=== PATIENT | female | born 1995 | race Caucasian/White ===

== ENCOUNTER 2018-11-28 16:48 | Observation (INO) | payer OTHER ==
[~2018-11-28] VITALS: Ht 165.1 cm; Wt 54.4 kg
[~2018-11-28 16:48] MED LIST: FLUO10 PO; GABA300 PO; HYDHCL25 PO; IBUP600 PO; MULVITMIND PO; NEXPLANON68 MG SQ; Oxycodone HCl5 M1 PO; RISP.5 PO; SENN187 PO; Tylenol325 MG PO; Vibramycin100 MG PO; ZINC15 PO
[2018-11-28 18:15] LABS: Source, Urine Clean Catch
[2018-11-28 18:19] LABS: BASOPHILS ABSOLUTE AUTO 0.08 K/mm3 (0.00-0.23); BASOPHILS PERCENT AUTO 1 % (0-2); EOSINOPHILS ABSOLUTE AUTO 0.01 K/mm3 (0.00-0.68); EOSINOPHILS PERCENT AUTO 0 % (0-6); Hemoglobin 12.6 g/dL (11.5-16.0); IMMATURE GRAN ABSOLUTE AUTO 0.02 K/mm3 (0.00-0.10); IMMATURE GRAN PERCENT AUTO 0 % (0-1); LYMPHOCYTES ABSOLUTE AUTO 1.15 K/mm3 (0.84-5.20); LYMPHOCYTES PERCENT AUTO 15 % (21-46); MONOCYTES ABSOLUTE AUTO 0.83 K/mm3 (0.16-1.47); MONOCYTES PERCENT AUTO 11 % (4-13); Mean Corpuscular HGB 29.2 pg (26.0-34.0); Mean Corpuscular HGB Conc 33.2 g/dL (31.5-36.5); Mean Corpuscular Volume 88 fL (80-100); Mean Platelet Volume 9.4 fL (9.1-12.4); NEUTROPHILS ABSOLUTE AUTO 5.68 K/mm3 (1.96-9.15); NEUTROPHILS PERCENT AUTO 73 % (41-73); Platelet Count 275 K/mm3 (150-400); RDW Coefficient Variation 13.4 % (11.7-14.2); RDW Standard Deviation 43.9 fL (35.1-46.3); Red Blood Cell Count 4.31 M/mm3 (3.80-5.20); White Blood Cell Count 7.77 K/mm3 (4.00-11.30)
[2018-11-28 18:22] LABS: Bilirubin, Urine Neg (Neg); Blood, Urine 3+ (Neg); Glucose Qualitative, Urine Neg (Neg); Ketones, Urine 2+ (Neg); Leukocyte Esterase, Urine Neg (Neg); Nitrite, Urine Neg (Neg); Protein, Urine 1+ (Neg); Specific Gravity, Urine 1.025 (1.003-1.022); Urobilinogen, Urine NORM (Normal)
[2018-11-28 18:42] LABS: Appearance, Urine Clear (Clear); Color, Urine Yellow (P-Yellow)
[2018-11-28 18:43] LABS: Mucus Light (0-Heavy)
[2018-11-28 18:44] LABS: Bacteria Few /hpf; Squamous Epithelial Cells Few /hpf (Few)
[2018-11-28 18:51] LABS: Ethanol (Alcohol), Blood, Med <3 mg/dL; Salicylate 2.5 mg/dL (2.8-20.0)
[2018-11-28 18:51] LABS: U Amphetamine Screen Not Detected; U Barbituate Screen Not Detected; U Benzodiazapine Screen Not Detected; U Buprenorphine Screen Not Detected; U Cannabinoids Screen DETECTED; U Cocaine Screen Not Detected; U Methadone Screen Not Detected; U Methamphetamine Screen Not Detected; U Opiates Screen Not Detected; U Oxycodone Screen Not Detected; U Phencyclidine Screen Not Detected; U Propoxyphene Screen Not Detected
[2018-11-28 18:57] LABS: Alanine Aminotransfer (ALT/SGP 17 U/L (12-78); Albumin, Blood 4.3 g/dL (3.4-5.0); Albumin/Globulin Ratio 1.2 (0.8-1.8); Alk Phos 65 U/L (50-136); Anion Gap 8 mmol/L (6-16); Aspartate Aminotrans (AST/SGOT 13 U/L (12-37); Bilirubin, Total 0.6 mg/dL (0.1-1.0); Blood Urea Nitrogen 13 mg/dL (8-24); CO2, Blood 25 mmol/L (21-32); Calcium, Blood 8.7 mg/dL (8.5-10.1); Chloride, Blood 105 mmol/L (98-108); Creatinine, Blood 0.65 mg/dL (0.40-1.00); Globulin, Blood 3.7 g/dL (2.2-4.0); Glomerular Filtration Rate >60 (60-); Glucose, Blood 113 mg/dL (70-99); Potassium, Blood 3.6 mmol/L (3.5-5.5); Sodium, Blood 138 mmol/L (136-145)
[2018-11-28 19:04] LABS: Acetaminophen, Random <2.0 ug/mL (10.0-30.0)
[2018-12-02] MEDS ORDERED: LORA1 SL (10:54)
[2018-12-02] MEDS ORDERED: OLAN10 PO (10:54)
[2018-12-02] MEDS ORDERED: VENL75ER PO (10:54)
== END 2018-12-02 12:21 | disposition home or self-care (01) ==
LOC: ER 16:48 → EOR 16:49
PROVIDERS: ADMIT Emergency Medicine
DX: F23 Brief psychotic disorder (principal); F41.9 Anxiety disorder, unspecified; F32.9 Major depressive disorder, single episode, unspecified; G43.909 Migraine, unspecified, not intractable, without status migrainosus; Z79.899 Other long term (current) drug therapy
CPT/HCPCS: 80053; 81001; 81025; 84443; 85025; 96372; 99285-25; G0378; G0480

== ENCOUNTER 2018-12-09 11:58 | Emergency (ER) | payer OTHER ==
[~2018-12-09] VITALS: Ht 162.6 cm; Wt 54.4 kg
[~2018-12-09 11:58] MED LIST changes: +LORA1 SL; +OLAN10 PO; +VENL75ER PO
[2018-12-09] MEDS ORDERED: Ativan1 MG PO ×2 (12:23→12:32)
[2018-12-09] MEDS ORDERED: OLAN5 PO (12:23)
== END 2018-12-09 12:28 | disposition home or self-care (01) ==
LOC: ER 11:58
DX: Z76.0 Encounter for issue of repeat prescription (principal); Z79.899 Other long term (current) drug therapy; G43.909 Migraine, unspecified, not intractable, without status migrainosus
CPT/HCPCS: 99281

== ENCOUNTER 2020-04-19 10:55 | Emergency (ER) | payer OTHER ==
[~2020-04-19] VITALS: Ht 162.6 cm; Wt 54.4 kg
[~2020-04-19 10:55] MED LIST changes: +Ativan1 MG PO; +OLAN5 PO
[2020-04-19] MEDS ORDERED: RISP2 PO (11:35)
[2020-04-19] MEDS ORDERED: Klonopin1 MG PO (11:35)
[2020-04-19 12:08] LABS: BASOPHILS ABSOLUTE AUTO 0.09 K/mm3 (0.00-0.23); BASOPHILS PERCENT AUTO 1 % (0-2); EOSINOPHILS ABSOLUTE AUTO 0.11 K/mm3 (0.00-0.68); EOSINOPHILS PERCENT AUTO 1 % (0-6); Hematocrit 38.7 % (33.0-51.0); Hemoglobin 12.2 g/dL (11.5-16.0); IMMATURE GRAN ABSOLUTE AUTO 0.06 K/mm3 (0.00-0.10); IMMATURE GRAN PERCENT AUTO 0 % (0-1); LYMPHOCYTES ABSOLUTE AUTO 1.58 K/mm3 (0.84-5.20); LYMPHOCYTES PERCENT AUTO 10 % (21-46); MONOCYTES ABSOLUTE AUTO 0.81 K/mm3 (0.16-1.47); MONOCYTES PERCENT AUTO 5 % (4-13); Mean Corpuscular HGB 29.6 pg (26.0-34.0); Mean Corpuscular HGB Conc 31.5 g/dL (31.5-36.5); Mean Corpuscular Volume 94 fL (80-100); Mean Platelet Volume 9.2 fL (9.1-12.4); NEUTROPHILS ABSOLUTE AUTO 13.24 K/mm3 (1.96-9.15); NEUTROPHILS PERCENT AUTO 83 % (41-73); Platelet Count 378 K/mm3 (150-400); RDW Coefficient Variation 13.1 % (11.7-14.2); RDW Standard Deviation 45.2 fL (35.1-46.3); Red Blood Cell Count 4.12 M/mm3 (3.80-5.20); White Blood Cell Count 15.89 K/mm3 (4.00-11.30)
[2020-04-19 12:24] LABS: International Normalized Ratio 1.15; Prothrombin Time Results 12.2 Sec (9.7-11.5)
[2020-04-19 12:27] LABS: Alanine Aminotransfer (ALT/SGP 17 U/L (12-78); Albumin/Globulin Ratio 1.1 (0.8-1.8); Alk Phos 57 U/L (50-136); Anion Gap 5 mmol/L (6-16); Aspartate Aminotrans (AST/SGOT 10 U/L (12-37); Bilirubin, Total 0.4 mg/dL (0.1-1.0); Blood Urea Nitrogen 38 mg/dL (8-24); Bun/Creatinine Ratio 53.4 (12.0-20.0); CO2, Blood 26 mmol/L (21-32); Calcium, Blood 9.3 mg/dL (8.5-10.1); Chloride, Blood 107 mmol/L (98-108); Creatinine, Blood 0.71 mg/dL (0.40-1.00); Globulin, Blood 3.7 g/dL (2.2-4.0); Glomerular Filtration Rate >60 (60-); Glucose, Blood 112 mg/dL (70-99); Potassium, Blood 4.2 mmol/L (3.5-5.5); Sodium, Blood 138 mmol/L (136-145); Total Protein, Blood 7.7 g/dL (6.4-8.2)
[2020-04-19 12:59] LABS: Troponin I <0.015 ng/mL (0.000-0.040)
[2020-04-19 13:25] LABS: Source, Urine Clean Catch
[2020-04-19 13:28] LABS: Appearance, Urine Clear (Clear); Bilirubin, Urine Neg (Neg); Blood, Urine Neg (Neg); Color, Urine Yellow (P-Yellow); Glucose Qualitative, Urine Neg (Neg); Ketones, Urine 3+ (Neg); Leukocyte Esterase, Urine Neg (Neg); Nitrite, Urine Neg (Neg); Protein, Urine Neg (Neg); Specific Gravity, Urine 1.005 (1.003-1.022); Urobilinogen, Urine NORM (Normal); pH, Urine 6.5 (5.0-8.0)
[2020-04-19] MEDS ORDERED: Pepcid20 MG PO (14:56)
[2020-04-19] MEDS ORDERED: ONDA4ODT MM (14:56)
[2020-04-20] MEDS ORDERED: VENL150ER PO (00:03)
[2020-04-20] MEDS ORDERED: LITH300ER PO (00:04)
[2020-04-20] MEDS ORDERED: BUPR100 PO (00:05)
[2020-04-20] MEDS ORDERED: VENL75ER PO (00:05)
[2020-04-27] MEDS ORDERED: FERROUS GLUCON324 M2 PO (22:25)
== END 2020-04-19 15:47 | disposition home or self-care (01) ==
LOC: ER 10:55
PROVIDERS: Emergency Medicine; Physician Assistant
DX: E86.0 Dehydration (principal); R11.2 Nausea with vomiting, unspecified; R10.13 Epigastric pain; R06.00 Dyspnea, unspecified; Z79.899 Other long term (current) drug therapy; F32.9 Major depressive disorder, single episode, unspecified; F41.9 Anxiety disorder, unspecified; F17.210 Nicotine dependence, cigarettes, uncomplicated
CPT/HCPCS: 36415; 74022; 80053; 81003; 83690; 84484; 85025; 85379; 85610; 85730; 86850; 86900; 86901; 93005; 93010; 96361; 96374; 99284-25; J2405; J7120

== ENCOUNTER 2020-04-19 23:49 | Inpatient (IN) | payer OTHER ==
[~2020-04-19] VITALS: Ht 160 cm; Wt 51.0 kg
[~2020-04-19 23:49] MED LIST changes: +Klonopin1 MG PO; +ONDA4ODT MM; +Pepcid20 MG PO; +RISP2 PO
[2020-04-20] MEDS ORDERED: VENL150ER PO (00:03)
[2020-04-20] MEDS ORDERED: LITH300ER PO (00:04)
[2020-04-20] MEDS ORDERED: BUPR100 PO (00:05)
[2020-04-20] MEDS ORDERED: VENL75ER PO (00:05)
[2020-04-20 00:10] LABS: BASOPHILS ABSOLUTE AUTO 0.06 K/mm3 (0.00-0.23); BASOPHILS PERCENT AUTO 0 % (0-2); EOSINOPHILS ABSOLUTE AUTO 0.04 K/mm3 (0.00-0.68); EOSINOPHILS PERCENT AUTO 0 % (0-6); Hemoglobin 7.5 g/dL (11.5-16.0); IMMATURE GRAN ABSOLUTE AUTO 0.06 K/mm3 (0.00-0.10); IMMATURE GRAN PERCENT AUTO 0 % (0-1); LYMPHOCYTES ABSOLUTE AUTO 2.65 K/mm3 (0.84-5.20); LYMPHOCYTES PERCENT AUTO 19 % (21-46); MONOCYTES ABSOLUTE AUTO 1.13 K/mm3 (0.16-1.47); MONOCYTES PERCENT AUTO 8 % (4-13); Mean Corpuscular HGB 30.2 pg (26.0-34.0); Mean Corpuscular HGB Conc 31.3 g/dL (31.5-36.5); Mean Corpuscular Volume 97 fL (80-100); Mean Platelet Volume 9.6 fL (9.1-12.4); NEUTROPHILS ABSOLUTE AUTO 9.81 K/mm3 (1.96-9.15); NEUTROPHILS PERCENT AUTO 71 % (41-73); Platelet Count 269 K/mm3 (150-400); RDW Coefficient Variation 13.2 % (11.7-14.2); RDW Standard Deviation 46.5 fL (35.1-46.3); Red Blood Cell Count 2.48 M/mm3 (3.80-5.20); White Blood Cell Count 13.75 K/mm3 (4.00-11.30)
[2020-04-20 00:10] LABS: Calcium, Ionized (POC) 1.09 mmol/L (1.10-1.46); Chloride (POC) 109 mmol/L (98-108); Creatinine (POC) 0.5 mg/dL (0.6-1.0); Glucose (ISTAT POC) 162 mg/dL (70-99); Hemoglobin (POC) 7.1 g/dL (12.0-16.0); Potassium (POC) 4.4 mmol/L (3.5-5.5); Sodium (POC) 141 mmol/L (135-148); Total CO2 (POC) 20 mmol/L (21-32)
[2020-04-20 00:46] LABS: Alanine Aminotransfer (ALT/SGP 14 U/L (12-78); Albumin, Blood 2.8 g/dL (3.4-5.0); Albumin/Globulin Ratio 1.1 (0.8-1.8); Alk Phos 39 U/L (50-136); Anion Gap 7 mmol/L (6-16); Aspartate Aminotrans (AST/SGOT 8 U/L (12-37); Bilirubin, Total 0.2 mg/dL (0.1-1.0); Blood Urea Nitrogen 39 mg/dL (8-24); Bun/Creatinine Ratio 59.6 (12.0-20.0); CO2, Blood 21 mmol/L (21-32); Chloride, Blood 115 mmol/L (98-108); Creatinine, Blood 0.65 mg/dL (0.40-1.00); Globulin, Blood 2.6 g/dL (2.2-4.0); Glomerular Filtration Rate >60 (60-); Glucose, Blood 176 mg/dL (70-99); Potassium, Blood 4.4 mmol/L (3.5-5.5); Sodium, Blood 143 mmol/L (136-145)
[2020-04-20 01:01] LABS: Calcium, Blood 7.3 mg/dL (8.5-10.1); Total Protein, Blood 5.4 g/dL (6.4-8.2)
[2020-04-20 06:08] LABS: BASOPHILS ABSOLUTE AUTO 0.03 K/mm3 (0.00-0.23); BASOPHILS PERCENT AUTO 0 % (0-2); EOSINOPHILS PERCENT AUTO 0 % (0-6); Hematocrit 30.3 % (33.0-51.0); Hemoglobin 9.9 g/dL (11.5-16.0); IMMATURE GRAN ABSOLUTE AUTO 0.04 K/mm3 (0.00-0.10); IMMATURE GRAN PERCENT AUTO 0 % (0-1); LYMPHOCYTES ABSOLUTE AUTO 1.73 K/mm3 (0.84-5.20); LYMPHOCYTES PERCENT AUTO 15 % (21-46); MONOCYTES ABSOLUTE AUTO 0.86 K/mm3 (0.16-1.47); MONOCYTES PERCENT AUTO 8 % (4-13); Mean Corpuscular HGB 28.9 pg (26.0-34.0); Mean Corpuscular HGB Conc 32.7 g/dL (31.5-36.5); Mean Platelet Volume 9.6 fL (9.1-12.4); NEUTROPHILS PERCENT AUTO 76 % (41-73); Platelet Count 196 K/mm3 (150-400); RDW Coefficient Variation 14.3 % (11.7-14.2); RDW Standard Deviation 46.5 fL (35.1-46.3); Red Blood Cell Count 3.42 M/mm3 (3.80-5.20); White Blood Cell Count 11.26 K/mm3 (4.00-11.30)
[2020-04-20 06:15] LABS: Mean Corpuscular Volume 89 fL (80-100)
--- NOTE | 2020-04-20 08:17 | NUR ---
Admission/Camp of Care: Patient arrived to unit at 0745hr, via stretcher, accompanied by ED nurse. Patient stood and transferred to ICU bed, appeared steady on her feet but c/o dizziness when standing. Patient then instructed on use of call light, and to not get out of bed without assistance. Denies pain, dyspnea/SOB, VSS. C/o slight nausea and epi-gastric discomfort. Given Zofran in ED before transfer to unit, plan to contact hospitalist ro request prn phenergan. Denies need to void at this time, will attempt use of bedside commode when patient needs to void. Peripheral IV's x2 patent and intact, infusing LR at 125ml/hr without difficulty. Received call from Dr. Matthew before patient's arrival to unit, instructed patient may have water only until 1300hr, then NPO, plan for endoscopy this afternoon. Patient calm and cooperative with staff. Call light in reach. Will continue to monitor.
--- NOTE | 2020-04-20 18:51 | NUR ---
Shift Summary: No significant changes throughout shift. VS remain stable, and no bloody stool or emesis throughout shift. C/o nausea and ABD discomfort throughout shift, effectively managed with prn zofran and phenergan. Also c/o anxiety, effectively managed with prn Ativan x2 doses. Transfers to bedside commode or toilet in room with stand-by assist, without difficulty. Endoscopy performed by Dr. Matthew and Day Surgery nurses this evening. Patient tolerated procedure well, Dr. Matthew report x3 clips placed to upper gastric regoin. Patient had coughing spell following procedure. Cough sounded dry, but large amount of clear secretions expelled, spO2 remained 96-98% on RA. Received order per Dr. Matthew for prn Tesslon pearls, x1 dose given now. Patient now only occasionally coughing. Tolerating PO water at this time, may progress to puree diet as tolerated. Call light in reach, makes needs known. Will continue to monitor until report to NOC shift RN.
--- NOTE | 2020-04-20 20:21 | NUR ---
04/20 @ 20:00 TRANSFERRED PATIENT OUT OF ICU TO ROOM 335. GAVE REPORT TO OSCAR ABERNATHY. NO C/O DIZZINESS WHILE STANDING, WALKING TO BEDSIDE COMMODE. GAVE PO TYLENOL PRIOR TO LEAVING FOR HEADACHE, REDUCING STIMULIS ALSO HELPED WITH RELIEF. VSS. IT HAS BEEN A PLEASURE TAKING CARE OF THIS PATIENT.
[2020-04-21 04:59] LABS: BASOPHILS ABSOLUTE AUTO 0.07 K/mm3 (0.00-0.23); BASOPHILS PERCENT AUTO 1 % (0-2); EOSINOPHILS ABSOLUTE AUTO 0.22 K/mm3 (0.00-0.68); EOSINOPHILS PERCENT AUTO 2 % (0-6); Hemoglobin 8.1 g/dL (11.5-16.0); IMMATURE GRAN ABSOLUTE AUTO 0.04 K/mm3 (0.00-0.10); IMMATURE GRAN PERCENT AUTO 0 % (0-1); LYMPHOCYTES ABSOLUTE AUTO 3.54 K/mm3 (0.84-5.20); LYMPHOCYTES PERCENT AUTO 35 % (21-46); MONOCYTES PERCENT AUTO 9 % (4-13); Mean Corpuscular HGB 29.3 pg (26.0-34.0); Mean Corpuscular HGB Conc 32.4 g/dL (31.5-36.5); Mean Corpuscular Volume 91 fL (80-100); Mean Platelet Volume 9.6 fL (9.1-12.4); NEUTROPHILS ABSOLUTE AUTO 5.29 K/mm3 (1.96-9.15); NEUTROPHILS PERCENT AUTO 53 % (41-73); Platelet Count 177 K/mm3 (150-400); RDW Coefficient Variation 15.4 % (11.7-14.2); RDW Standard Deviation 50.6 fL (35.1-46.3); Red Blood Cell Count 2.76 M/mm3 (3.80-5.20); White Blood Cell Count 10.06 K/mm3 (4.00-11.30)
[2020-04-21 05:22] LABS: Albumin, Blood 2.7 g/dL (3.4-5.0); Anion Gap 1 mmol/L (6-16); Blood Urea Nitrogen 14 mg/dL (8-24); Bun/Creatinine Ratio 18.3 (12.0-20.0); CO2, Blood 27 mmol/L (21-32); Calcium, Blood 7.7 mg/dL (8.5-10.1); Chloride, Blood 119 mmol/L (98-108); Creatinine, Blood 0.76 mg/dL (0.40-1.00); Glomerular Filtration Rate >60 (60-); Glucose, Blood 82 mg/dL (70-99); Phosphorus, Blood 2.4 mg/dL (2.5-4.9); Potassium, Blood 3.7 mmol/L (3.5-5.5); Sodium, Blood 147 mmol/L (136-145)
--- NOTE | 2020-04-21 07:22 | NUR ---
SHIFT SUMMARY PT WAS AN ICU TRANSFER DURING THE NIGHT, ARRIVING ON THE FLOOR AT APPROXIMATELY 2000. SHE IS A&O X 4, THOUGH ANXIOUS AT TIMES. SHE WAS MEDICATED ONCE FOR ANXIETY WITH PRN ATIVAN, AND ONCE FOR NAUSEA WITH PRN ONDANSETRON. SHE WAS MEDICATED FOR A CHRONIC SANTA WITH PRN TYLENOL. PT RECEIVED LR @ 125 UNTIL 0400 THIS AM. NO OTHER ACUTE CHANGES IN PT CONDITION NOTED. WILL CONTINUE TO MONITOR AND TREAT PER EMAR UNTIL HAND OFF TO DAY SHIFT RN.
--- NOTE | 2020-04-21 07:28 | NUR ---
ASSUMED PATIENT CARE. PATIENT RESTING COMFORTABLY IN BED, NO SIGNS OF ACUTE DISTRESS. CONVERSING WITH NURSING STAFF, MACIE.
--- NOTE | 2020-04-21 10:59 | NUR ---
04/21/20 1059 Abhinav Nevarez Bite Block Placed. 3-LEAD EKG REVIEWED WITH PHYSICIAN PRIOR TO START OF PROCEDURE.History, Chart, Medications and Allergies reviewed before start of procedure.MONITOR INTACT WITH CONTINUOUS PULSE OXIMETRY AND INTERMITTENT BP.O2 VIA N/C INTACT THROUGHOUT SEDATION/PROCEDURE.
[2020-04-21 12:43] LABS: Hematocrit 26.7 % (33.0-51.0); Hemoglobin 8.7 g/dL (11.5-16.0)
--- NOTE | 2020-04-21 12:58 | NUR ---
PROMOTE PO INTAKE, PATIENT ENCOURAGED TO GET UP OUT OF BED WHEN FEELING LESS NASEATED. PATIENT AGREEABLE TO TRYING SOME OF LUNCH TRAY AND OPENING UP WINDOW SHADES.
--- NOTE | 2020-04-21 15:16 | NUR ---
Patient immediately tells the story of the events leading up to her hospitalization and the terror and frustration that happened at home before the ambulance arrived. Patient talks about her current fears and forgiveness issues. Patient talks about her spirituality and her lack of feeling centered. We discuss ways to gain that stability back. I reinforce helpful attitudes and practices, provide anxiety containment, a calming presence and prayer. Patient responds well and shows signs of improved peace. I will continue to remain available to patient and family.
--- NOTE | 2020-04-21 17:50 | NUR ---
NO ACUTE EVENTS THIS SHIFT. PATIENT WAS VERY SLEEPY THIS MORNING, WOKE UP THROUGH THIS SHIFT. PO INTAKE ENCOURAGED, PO HHYDRATION ENCOURAGED. PATIENT INCREASINGLY ABLE TO TOLERATE PO INTAKE THROUGH SHIFT. PATIENT HAS NOT YET HAD A BOWEL MOVEMENT SINCE ADMISSION, DR. GERMAIN NOTIFIED AND ORDERS FOR BOWEL CARE MEDS GIVEN. PER DR. PORRAS PATIENT IS READY FOR DISCHARGE FROM GI STANDPOINT. H&H TRENDED IN DESIRED DIRECTION.
--- NOTE | 2020-04-21 19:12 | NUR ---
RELINQUISHED PATIENT CARE.
--- NOTE | 2020-04-21 22:12 | NUR ---
PT FEELING ANXIOUS STILL AFTER IV ATIVAN GIVEN. PT EXPRESSED SHE TAKES KLONIPIN AT HOME FOR ANXIETY. SHE SAYS SHE TAKES "A PILL AND A HALF" OF THAT MEDICATION. HOSPITALIST ARMIDA NOTIFIED AND ORDERED KLONIPIN 0.5. WILL GIVE THIS TO PT ONCE PHARMACY VERFIIES THE MEDICATION.
--- NOTE | 2020-04-22 05:18 | NUR ---
CHIEF OPERATIONS OFFICER SUMMARY PT A/O X4. INDEPENDENT IN ROOM. MEDICATED FOR ABD PAIN AND ANIXIETY OVERNIGHT. PT ALSO RECIEVED ZOFRAN FOR NAUSEA. VSS. SLEPT WELL MOST OF THE SHIFT. PT IS ON FULL LIQUID DIET. SHE STATES SHE FEELS NAUSEOUS WHENEVER DRINKING FLUIDS. VSS. NO ACUTE CHANGES. NO BOWEL MOVEMENTS.
[2020-04-22] MEDS ORDERED: Protonix40 M1 PO (11:32)
--- NOTE | 2020-04-22 11:45 | NUR ---
PATIENT GIVEN DISCHARGE INSTRUCTIONS. ALL QUESTIONS ANSWERED. IV ALREADY REMOVED. PATIENT DISCHARGED WITH MOM AT 1140.
[2020-04-27] MEDS ORDERED: FERROUS GLUCON324 M2 PO (22:25)
== END 2020-04-22 11:35 | disposition home or self-care (01) | DRG 368 ==
LOC: ER 23:49 → ERHOLD 23:50 → ICUE 23:50 → ERHOLD 23:50 → ICUE 04-20 08:05 → MEDS 04-20 11:33 → ICUE 04-20 18:00 → MEDS 04-20 20:01
PROVIDERS: Emergency Medicine; Family Medicine; Internal Medicine; Internal Medicine Gastroenterology; ADMIT Internal Medicine
PROC: 0W3P8ZZ Control Bleeding in Gastrointestinal Tract, Via Natural or Artificial Opening Endoscopic (ICD-10-PCS; principal; 2020-04-20 14:30)
PROC: 30233N1 Transfusion of Nonautologous Red Blood Cells into Peripheral Vein, Percutaneous Approach (ICD-10-PCS; 2020-04-21)
DX: K22.6 Gastro-esophageal laceration-hemorrhage syndrome (principal); R40.20 Unspecified coma; D62 Acute posthemorrhagic anemia; K25.0 Acute gastric ulcer with hemorrhage; K44.9 Diaphragmatic hernia without obstruction or gangrene; R51 Headache; F41.8 Other specified anxiety disorders; Z20.828 Contact with and (suspected) exposure to other viral communicable diseases
CPT/HCPCS: 36415; 36430; 80047; 80053; 80069; 81025; 85014; 85018; 85025; 86850; 86900; 86901; 86923; 93005; 93010; 96374; 96375; 96376; 99285-25; A9270; C9113; G0378; J2060; J2250; J2405; J2550; J2704; J2765; J3010; J7030; J7120; P9016; U0002

== ENCOUNTER 2020-07-15 14:32 | Emergency (ER) | payer OTHER ==
[~2020-07-15] VITALS: Ht 160 cm; Wt 54.4 kg
[~2020-07-15 14:32] MED LIST changes: +BUPR100 PO; +FERROUS GLUCON324 M2 PO; +LITH300ER PO; +Protonix40 M1 PO; +VENL150ER PO
[2020-07-15 15:15] LABS: Source, Urine Clean Catch
[2020-07-15 15:19] LABS: BASOPHILS ABSOLUTE AUTO 0.09 K/mm3 (0.00-0.23); BASOPHILS PERCENT AUTO 1 % (0-2); EOSINOPHILS ABSOLUTE AUTO 0.15 K/mm3 (0.00-0.68); EOSINOPHILS PERCENT AUTO 2 % (0-6); Hematocrit 42.2 % (33.0-51.0); Hemoglobin 13.6 g/dL (11.5-16.0); IMMATURE GRAN ABSOLUTE AUTO 0.01 K/mm3 (0.00-0.10); IMMATURE GRAN PERCENT AUTO 0 % (0-1); LYMPHOCYTES ABSOLUTE AUTO 2.79 K/mm3 (0.84-5.20); LYMPHOCYTES PERCENT AUTO 36 % (21-46); MONOCYTES ABSOLUTE AUTO 0.68 K/mm3 (0.16-1.47); MONOCYTES PERCENT AUTO 9 % (4-13); Mean Corpuscular HGB 27.4 pg (26.0-34.0); Mean Corpuscular HGB Conc 32.2 g/dL (31.5-36.5); Mean Corpuscular Volume 85 fL (80-100); Mean Platelet Volume 9.8 fL (9.1-12.4); NEUTROPHILS PERCENT AUTO 52 % (41-73); Platelet Count 306 K/mm3 (150-400); RDW Coefficient Variation 16.4 % (11.7-14.2); RDW Standard Deviation 51.3 fL (35.1-46.3); Red Blood Cell Count 4.97 M/mm3 (3.80-5.20); White Blood Cell Count 7.72 K/mm3 (4.00-11.30)
[2020-07-15 15:23] LABS: Appearance, Urine Clear (Clear); Bilirubin, Urine Neg (Neg); Blood, Urine Neg (Neg); Color, Urine Yellow (P-Yellow); Glucose Qualitative, Urine Neg (Neg); Ketones, Urine 3+ (Neg); Leukocyte Esterase, Urine Neg (Neg); Nitrite, Urine Neg (Neg); Protein, Urine Neg (Neg); Urobilinogen, Urine NORM (Normal)
[2020-07-15 15:37] LABS: U Amphetamine Screen Not Detected; U Barbituate Screen DETECTED; U Benzodiazapine Screen Not Detected; U Buprenorphine Screen Not Detected; U Cannabinoids Screen DETECTED; U Cocaine Screen Not Detected; U Methadone Screen Not Detected; U Methamphetamine Screen Not Detected; U Opiates Screen Not Detected; U Oxycodone Screen Not Detected; U Phencyclidine Screen Not Detected; U Propoxyphene Screen Not Detected
[2020-07-15 15:38] LABS: Alanine Aminotransfer (ALT/SGP 16 U/L (12-78); Albumin/Globulin Ratio 1.1 (0.8-1.8); Alk Phos 66 U/L (50-136); Anion Gap 8 mmol/L (6-16); Aspartate Aminotrans (AST/SGOT 14 U/L (12-37); Bilirubin, Total 0.3 mg/dL (0.1-1.0); Blood Urea Nitrogen 8 mg/dL (8-24); Bun/Creatinine Ratio 12.5 (12.0-20.0); CO2, Blood 22 mmol/L (21-32); Calcium, Blood 9.1 mg/dL (8.5-10.1); Chloride, Blood 111 mmol/L (98-108); Creatinine, Blood 0.64 mg/dL (0.40-1.00); Ethanol (Alcohol), Blood, Med <3 mg/dL; Globulin, Blood 3.5 g/dL (2.2-4.0); Glomerular Filtration Rate >60 (60-); Glucose, Blood 66 mg/dL (70-99); Potassium, Blood 3.5 mmol/L (3.5-5.5); Salicylate 3.6 mg/dL (2.8-20.0); Sodium, Blood 141 mmol/L (136-145); Thyroxine (T4) 10.7 ug/dL (4.8-13.9); Total Protein, Blood 7.5 g/dL (6.4-8.2)
[2020-07-15 15:42] LABS: Acetaminophen, Random <2.0 ug/mL (10.0-30.0)
== END 2020-07-15 16:13 | disposition home or self-care (01) ==
LOC: ER 14:32
PROVIDERS: Emergency Medicine
DX: F41.9 Anxiety disorder, unspecified (principal); F32.9 Major depressive disorder, single episode, unspecified; Z79.899 Other long term (current) drug therapy
CPT/HCPCS: 36415; 51798; 80053; 80178; 81003; 81025; 84436; 84443; 85025; 99284; G0480

== ENCOUNTER → 2020-07-22 | Outpatient (CLI) | payer OTHER | LOC: LAB SHORT 15:43 → LAB 15:43 | DX: R30.0 Dysuria (principal) | CPT/HCPCS: 87086 ==

== ENCOUNTER 2020-10-12 22:48 | Emergency (ER) | payer OTHER ==
[~2020-10-12] VITALS: Ht 160 cm; Wt 50.8 kg
[~2020-10-12 22:48] MED LIST changes: +BUTALB-ACETAMI1 EAC6 PO; +DICY20 PO; +Omeprazole20 M1 PO
[2020-10-12] MEDS ORDERED: CLON1 PO (22:58)
[2020-10-12] MEDS ORDERED: LAMO25 PO (22:58)
== END 2020-10-12 23:43 | disposition home or self-care (01) ==
LOC: ER 22:48
DX: F41.1 Generalized anxiety disorder (principal); F41.0 Panic disorder [episodic paroxysmal anxiety]; F17.200 Nicotine dependence, unspecified, uncomplicated; Z79.899 Other long term (current) drug therapy; Z88.2 Allergy status to sulfonamides
CPT/HCPCS: 99283; A9270

== ENCOUNTER 2020-10-21 02:19 | Emergency (ER) | payer OTHER ==
[~2020-10-21] VITALS: Ht 160 cm; Wt 50.8 kg
[~2020-10-21 02:19] MED LIST changes: +CLON1 PO; +LAMO25 PO
[2020-10-21 03:29] LABS: BASOPHILS ABSOLUTE AUTO 0.11 K/mm3 (0.00-0.23); BASOPHILS PERCENT AUTO 2 % (0-2); EOSINOPHILS ABSOLUTE AUTO 0.31 K/mm3 (0.00-0.68); EOSINOPHILS PERCENT AUTO 4 % (0-6); Hematocrit 39.1 % (33.0-51.0); Hemoglobin 13.1 g/dL (11.5-16.0); IMMATURE GRAN ABSOLUTE AUTO 0.01 K/mm3 (0.00-0.10); IMMATURE GRAN PERCENT AUTO 0 % (0-1); LYMPHOCYTES ABSOLUTE AUTO 3.16 K/mm3 (0.84-5.20); LYMPHOCYTES PERCENT AUTO 43 % (21-46); MONOCYTES PERCENT AUTO 12 % (4-13); Mean Corpuscular HGB 30.5 pg (26.0-34.0); Mean Corpuscular HGB Conc 33.5 g/dL (31.5-36.5); Mean Corpuscular Volume 91 fL (80-100); Mean Platelet Volume 9.2 fL (9.1-12.4); NEUTROPHILS ABSOLUTE AUTO 2.86 K/mm3 (1.96-9.15); NEUTROPHILS PERCENT AUTO 39 % (41-73); Platelet Count 268 K/mm3 (150-400); RDW Coefficient Variation 13.2 % (11.7-14.2); RDW Standard Deviation 44.8 fL (35.1-46.3); White Blood Cell Count 7.35 K/mm3 (4.00-11.30)
[2020-10-21 03:49] LABS: Anion Gap 5 mmol/L (6-16); Blood Urea Nitrogen 5 mg/dL (8-24); Bun/Creatinine Ratio 9.3 (12.0-20.0); CO2, Blood 27 mmol/L (21-32); Calcium, Blood 8.9 mg/dL (8.5-10.1); Chloride, Blood 109 mmol/L (98-108); Creatinine, Blood 0.54 mg/dL (0.40-1.00); Glomerular Filtration Rate >60 (60-); Glucose, Blood 87 mg/dL (70-99); Potassium, Blood 3.5 mmol/L (3.5-5.5); Sodium, Blood 141 mmol/L (136-145); Troponin I <0.015 ng/mL (0.000-0.040)
== END 2020-10-21 04:23 | disposition home or self-care (01) ==
LOC: ER 02:19
PROVIDERS: Emergency Medicine
DX: R51.9 Headache, unspecified (principal); F17.210 Nicotine dependence, cigarettes, uncomplicated; Z88.2 Allergy status to sulfonamides; Z79.899 Other long term (current) drug therapy
CPT/HCPCS: 70450; 71045; 80048; 84484; 84703; 85025; 93005; 93010; 99285-25; A9270

== ENCOUNTER 2020-12-11 20:32 | Emergency (ER) | payer OTHER ==
[~2020-12-11] VITALS: Ht 160 cm; Wt 52.2 kg
[2020-12-11] MEDS ORDERED: GABA300 PO (20:48)
[2020-12-11] MEDS ORDERED: BUTALB-ACETAMI1 EAC7 (20:48)
[2020-12-11] MEDS ORDERED: LITHIUM CARBON300 M1 (20:49)
[2020-12-11] MEDS ORDERED: BUPR100ER (20:49)
== END 2020-12-11 21:50 | disposition left against medical advice (07) ==
LOC: ER 20:32
DX: Z53.21 Procedure and treatment not carried out due to patient leaving prior to being seen by health care provider (principal)

== ENCOUNTER 2021-01-21 07:14 | Emergency (ER) | payer OTHER ==
[~2021-01-21] VITALS: Ht 160 cm; Wt 50.8 kg
[~2021-01-21 07:14] MED LIST changes: +BUPR100ER; +BUTALB-ACETAMI1 EAC7; +LITHIUM CARBON300 M1
[2021-01-21 07:54] LABS: Source, Urine Clean Catch
[2021-01-21 07:58] LABS: Bilirubin, Urine Neg (Neg); Blood, Urine Neg (Neg); Glucose Qualitative, Urine Neg (Neg); Ketones, Urine Neg (Neg); Leukocyte Esterase, Urine Neg (Neg); Nitrite, Urine Neg (Neg); Protein, Urine Neg (Neg); Specific Gravity, Urine 1.015 (1.003-1.022); Urobilinogen, Urine NORM (Normal)
[2021-01-21 08:02] LABS: BASOPHILS ABSOLUTE AUTO 0.06 K/mm3 (0.00-0.23); BASOPHILS PERCENT AUTO 1 % (0-2); EOSINOPHILS ABSOLUTE AUTO 0.16 K/mm3 (0.00-0.68); EOSINOPHILS PERCENT AUTO 2 % (0-6); Hematocrit 43.1 % (33.0-51.0); IMMATURE GRAN ABSOLUTE AUTO 0.03 K/mm3 (0.00-0.10); IMMATURE GRAN PERCENT AUTO 0 % (0-1); LYMPHOCYTES ABSOLUTE AUTO 1.87 K/mm3 (0.84-5.20); LYMPHOCYTES PERCENT AUTO 25 % (21-46); MONOCYTES ABSOLUTE AUTO 0.81 K/mm3 (0.16-1.47); MONOCYTES PERCENT AUTO 11 % (4-13); Mean Corpuscular HGB 30.3 pg (26.0-34.0); Mean Corpuscular HGB Conc 32.5 g/dL (31.5-36.5); Mean Corpuscular Volume 93 fL (80-100); Mean Platelet Volume 9.2 fL (9.1-12.4); NEUTROPHILS ABSOLUTE AUTO 4.62 K/mm3 (1.96-9.15); NEUTROPHILS PERCENT AUTO 61 % (41-73); Platelet Count 312 K/mm3 (150-400); RDW Coefficient Variation 12.4 % (11.7-14.2); RDW Standard Deviation 42.5 fL (35.1-46.3); Red Blood Cell Count 4.62 M/mm3 (3.80-5.20); White Blood Cell Count 7.55 K/mm3 (4.00-11.30)
[2021-01-21 08:06] LABS: Appearance, Urine Clear (Clear); Color, Urine Yellow (P-Yellow)
[2021-01-21 08:12] LABS: U Amphetamine Screen Not Detected; U Barbituate Screen Not Detected; U Benzodiazapine Screen Not Detected; U Buprenorphine Screen Not Detected; U Cannabinoids Screen DETECTED; U Cocaine Screen Not Detected; U Methadone Screen Not Detected; U Methamphetamine Screen Not Detected; U Opiates Screen Not Detected; U Oxycodone Screen Not Detected; U Phencyclidine Screen Not Detected; U Propoxyphene Screen Not Detected
[2021-01-21 08:15] LABS: Alanine Aminotransfer (ALT/SGP 23 U/L (12-78); Albumin, Blood 4.2 g/dL (3.4-5.0); Albumin/Globulin Ratio 1.2 (0.8-1.8); Alk Phos 69 U/L (50-136); Anion Gap 3 mmol/L (6-16); Aspartate Aminotrans (AST/SGOT 7 U/L (12-37); Bilirubin, Total 0.2 mg/dL (0.1-1.0); Blood Urea Nitrogen 10 mg/dL (8-24); Bun/Creatinine Ratio 14.1 (12.0-20.0); CO2, Blood 29 mmol/L (21-32); Calcium, Blood 9.1 mg/dL (8.5-10.1); Chloride, Blood 107 mmol/L (98-108); Creatinine, Blood 0.71 mg/dL (0.40-1.00); Ethanol (Alcohol), Blood, Med <3 mg/dL; Globulin, Blood 3.5 g/dL (2.2-4.0); Glomerular Filtration Rate >60 (60-); Glucose, Blood 101 mg/dL (70-99); Potassium, Blood 3.8 mmol/L (3.5-5.5); Salicylate <1.7 mg/dL (2.8-20.0); Sodium, Blood 139 mmol/L (136-145); Total Protein, Blood 7.7 g/dL (6.4-8.2)
[2021-01-21 08:22] LABS: Acetaminophen, Random <2.0 ug/mL (10.0-30.0)
[2021-01-21] MEDS ORDERED: OLAN10 PO (09:22)
== END 2021-01-21 09:27 | disposition home or self-care (01) ==
LOC: ER 07:14
PROVIDERS: Emergency Medicine
DX: F22 Delusional disorders (principal); F17.210 Nicotine dependence, cigarettes, uncomplicated; Z88.2 Allergy status to sulfonamides; Z79.899 Other long term (current) drug therapy
CPT/HCPCS: 80053; 81003; 81025; 85025; 99284; A9270; G0480; Q3014

== ENCOUNTER → 2021-05-31 | Outpatient (CLI) | payer OTHER ==
[2021-05-31 11:58] LABS: Alanine Aminotransfer (ALT/SGP 25 U/L (12-78); Albumin, Blood 4.8 g/dL (3.4-5.0); Albumin/Globulin Ratio 1.1 (0.8-1.8); Alk Phos 76 U/L (40-126); Anion Gap 13 mmol/L (6-16); Aspartate Aminotrans (AST/SGOT 15 U/L (12-37); BASOPHILS ABSOLUTE AUTO 0.07 K/mm3 (0.00-0.23); BASOPHILS PERCENT AUTO 1 % (0-2); Bilirubin, Total 0.5 mg/dL (0.1-1.0); Blood Urea Nitrogen 8 mg/dL (8-24); Bun/Creatinine Ratio 10.7 (12.0-20.0); CO2, Blood 25 mmol/L (21-32); Calcium, Blood 9.6 mg/dL (8.5-10.1); Chloride, Blood 105 mmol/L (98-108); Creatinine, Blood 0.75 mg/dL (0.40-1.00); EOSINOPHILS PERCENT AUTO 2 % (0-6); Globulin, Blood 4.4 g/dL (2.2-4.0); Glomerular Filtration Rate >60 (60-); Glucose, Blood 120 mg/dL (70-99); Hematocrit 45.4 % (33.0-51.0); Hemoglobin 15.3 g/dL (11.5-16.0); IMMATURE GRAN ABSOLUTE AUTO 0.03 K/mm3 (0.00-0.10); IMMATURE GRAN PERCENT AUTO 0 % (0-1); LYMPHOCYTES ABSOLUTE AUTO 1.37 K/mm3 (0.84-5.20); LYMPHOCYTES PERCENT AUTO 12 % (21-46); MONOCYTES ABSOLUTE AUTO 0.58 K/mm3 (0.16-1.47); MONOCYTES PERCENT AUTO 5 % (4-13); Mean Corpuscular HGB 30.4 pg (26.0-34.0); Mean Corpuscular HGB Conc 33.7 g/dL (31.5-36.5); Mean Corpuscular Volume 90 fL (80-100); Mean Platelet Volume 9.5 fL (9.1-12.4); NEUTROPHILS ABSOLUTE AUTO 9.42 K/mm3 (1.96-9.15); NEUTROPHILS PERCENT AUTO 81 % (41-73); Platelet Count 345 K/mm3 (150-400); Potassium, Blood 3.6 mmol/L (3.5-5.5); RDW Coefficient Variation 12.8 % (11.7-14.2); RDW Standard Deviation 41.7 fL (35.1-46.3); Red Blood Cell Count 5.03 M/mm3 (3.80-5.20); Sodium, Blood 143 mmol/L (136-145); Total Protein, Blood 9.2 g/dL (6.4-8.2); White Blood Cell Count 11.67 K/mm3 (4.00-11.30)
== END | disposition home or self-care (01) ==
LOC: LAB 11:35 → LAB SHORT 11:35
PROVIDERS: Chiropractor
DX: K52.9 Noninfective gastroenteritis and colitis, unspecified (principal)
CPT/HCPCS: 80053; 83690; 85025

== ENCOUNTER → 2022-08-15 | Outpatient (CLI) | payer OTHER ==
[2022-08-15 16:42] LABS: Influenza B, PCR NEGATIVE (NEGATIVE); Resp Syncytial Virus, PCR NEGATIVE (NEGATIVE); SARS-Cov-2 (COVID-19) PCR, MMC NEGATIVE (NEGATIVE)
[2022-08-15 16:44] LABS: Influenza A, PCR POSITIVE (NEGATIVE)
== END ==
LOC: LAB SHORT 12:00 → LAB 12:00
PROVIDERS: Nurse Practitioner Family
DX: J02.9 Acute pharyngitis, unspecified (principal); R05.9 Cough, unspecified; R50.9 Fever, unspecified; Z20.822 Contact with and (suspected) exposure to COVID-19
CPT/HCPCS: 0241U

== ENCOUNTER → 2023-07-26 | Outpatient (CLI) | payer OTHER ==
[~2023-07-26] MED LIST changes: +AMOCLA875 PO; +BUTALB-ACETAMI1 EAC5 PO; -LITHIUM CARBON300 M1; +LITHIUM CARBON300 M1 PO; +OMEP20ER; +Venlafaxine HCl75 MG PO
== END ==
LOC: LAB SHORT 19:16 → LAB 19:16
DX: R10.13 Epigastric pain (principal); D72.829 Elevated white blood cell count, unspecified
CPT/HCPCS: 83690; 86140

== ENCOUNTER → 2023-07-26 | Outpatient (CLI) | payer OTHER ==
[2023-07-26 18:15] LABS: BASOPHILS PERCENT AUTO 1 % (0-2); EOSINOPHILS ABSOLUTE AUTO 0.12 K/mm3 (0.00-0.68); EOSINOPHILS PERCENT AUTO 1 % (0-6); Hematocrit 45.1 % (33.0-51.0); Hemoglobin 15.1 g/dL (11.5-16.0); IMMATURE GRAN ABSOLUTE AUTO 0.06 K/mm3 (0.00-0.10); IMMATURE GRAN PERCENT AUTO 0 % (0-1); LYMPHOCYTES ABSOLUTE AUTO 1.61 K/mm3 (0.84-5.20); LYMPHOCYTES PERCENT AUTO 11 % (21-46); MONOCYTES ABSOLUTE AUTO 0.85 K/mm3 (0.16-1.47); MONOCYTES PERCENT AUTO 6 % (4-13); Mean Corpuscular HGB 31.2 pg (26.0-34.0); Mean Corpuscular HGB Conc 33.5 g/dL (31.5-36.5); Mean Corpuscular Volume 93 fL (80-100); Mean Platelet Volume 8.9 fL (9.1-12.4); NEUTROPHILS ABSOLUTE AUTO 11.79 K/mm3 (1.96-9.15); NEUTROPHILS PERCENT AUTO 81 % (41-73); Platelet Count 389 K/mm3 (150-400); RDW Coefficient Variation 13.3 % (11.7-14.2); RDW Standard Deviation 45.6 fL (35.1-46.3); Red Blood Cell Count 4.84 M/mm3 (3.80-5.20); White Blood Cell Count 14.53 K/mm3 (4.00-11.30)
[2023-07-26 18:28] LABS: Albumin, Blood 4.2 g/dL (3.4-5.0); Albumin/Globulin Ratio 1.1 (0.8-1.8); Bilirubin, Total 0.3 mg/dL (0.1-1.0); Calcium, Blood 9.7 mg/dL (8.5-10.1); Creatinine, Blood 0.75 mg/dL (0.40-1.00); Globulin, Blood 3.8 g/dL (2.2-4.0); Potassium, Blood 3.8 mmol/L (3.5-5.5)
== END ==
LOC: LAB SHORT 18:11 → LAB 18:11
PROVIDERS: Family Medicine
DX: A08.4 Viral intestinal infection, unspecified (principal); R10.13 Epigastric pain; D72.829 Elevated white blood cell count, unspecified
CPT/HCPCS: 80053; 83690; 85025; 86140

== ENCOUNTER 2023-07-27 09:03 | Observation (INO) | payer OTHER ==
[~2023-07-27] VITALS: Ht 160 cm; Wt 77.1 kg
[2023-07-27] VITALS (11 sets, daily range): BP systolic 103–129; BP diastolic 71–92
[~2023-07-27 09:03] MED LIST changes: -AMOCLA875 PO; -BUTALB-ACETAMI1 EAC5 PO; -OMEP20ER; -Venlafaxine HCl75 MG PO
[2023-07-27] MEDS ORDERED: Venlafaxine HCl75 MG PO ×2 (10:07)
[2023-07-27] MEDS ORDERED: OMEP20ER ×2 (10:08)
[2023-07-27] MEDS ORDERED: BUTALB-ACETAMI1 EAC5 PO ×2 (10:08)
[2023-07-27 13:12] LABS: Hematocrit 46.8 % (33.0-51.0); Hemoglobin 15.5 g/dL (11.5-16.0); Mean Corpuscular HGB Conc 33.1 g/dL (31.5-36.5); Mean Corpuscular Volume 94 fL (80-100); Mean Platelet Volume 9.7 fL (9.1-12.4); Platelet Count 436 K/mm3 (150-400); RDW Coefficient Variation 13.4 % (11.7-14.2); RDW Standard Deviation 46.1 fL (35.1-46.3)
[2023-07-27 13:24] LABS: Albumin, Blood 3.9 g/dL (3.4-5.0); Albumin/Globulin Ratio 0.8 (0.8-1.8); Bilirubin, Total 0.6 mg/dL (0.1-1.0); Bun/Creatinine Ratio 11.2 (12.0-20.0); Calcium, Blood 9.9 mg/dL (8.5-10.1); Creatinine, Blood 0.72 mg/dL (0.40-1.00); Globulin, Blood 4.6 g/dL (2.2-4.0); Potassium, Blood 4.4 mmol/L (3.5-5.5); Total Protein, Blood 8.5 g/dL (6.4-8.2)
--- NOTE | 2023-07-27 13:35 | NUR ---
PT HERE VIA ADAM FROM ER FOR [facility]. Pre-Op teaching done. Pt verbalizes understanding. History, Chart, Medications and Allergies reviewed before start of procedure.Patient confirms NPO status and agrees with scheduled surgery.EXCEPT FOR SIPS OF WATER AT 1200. NO FOOD SINCE 1400.
[2023-07-27 14:03] LABS: BAND PERCENT MAN 10 % (0-8); BASOPHILS PERCENT MAN 0 % (0-2); EOSINOPHILS PERCENT MAN 0 % (0-6); LYMPHOCYTES ABSOLUTE MAN 1.75 K/mm3 (0.84-5.20); LYMPHOCYTES PERCENT MAN 7 % (21-46); MONOCYTES PERCENT MAN 4 % (4-13); NEUTROPHILS ABSOLUTE MAN 22.25 K/mm3 (1.96-9.15); SEG NEUTROPHILS PERCENT MAN 79 % (41-73); TOTAL CELLS COUNTED 100
--- NOTE | 2023-07-27 18:37 | NUR ---
ADMISSION: PT ARRIVED @1715 VIA GURNEY FROM PACU FOR APPENDECTOMY. PT C/O 03/19 PAIN IN. LOWER ABD. OXY AND ZOFRAN GIVEN UPON ADMIT. PT ABLE TO TOLERATE CLEAR FLUIDS AND JELLO. PT A&O X4. ANXIOUS UPON ARRIVAL. INCISIONS WNL. INDEPENDENT IN ROOM. VSS. CALL LIGHT IN REACH. BED IN LOWEST POSITION.
[2023-07-28 00:06] VITALS: BP 104/68
[2023-07-28 04:20] VITALS: BP 103/71
[2023-07-28 04:55] LABS: BASOPHILS ABSOLUTE AUTO 0.08 K/mm3 (0.00-0.23); BASOPHILS PERCENT AUTO 0 % (0-2); EOSINOPHILS ABSOLUTE AUTO 0.08 K/mm3 (0.00-0.68); EOSINOPHILS PERCENT AUTO 0 % (0-6); Hemoglobin 12.9 g/dL (11.5-16.0); IMMATURE GRAN ABSOLUTE AUTO 0.13 K/mm3 (0.00-0.10); IMMATURE GRAN PERCENT AUTO 1 % (0-1); LYMPHOCYTES ABSOLUTE AUTO 3.76 K/mm3 (0.84-5.20); LYMPHOCYTES PERCENT AUTO 16 % (21-46); MONOCYTES ABSOLUTE AUTO 1.99 K/mm3 (0.16-1.47); MONOCYTES PERCENT AUTO 9 % (4-13); Mean Corpuscular HGB 30.5 pg (26.0-34.0); Mean Corpuscular HGB Conc 33.1 g/dL (31.5-36.5); Mean Corpuscular Volume 92 fL (80-100); Mean Platelet Volume 9.6 fL (9.1-12.4); NEUTROPHILS ABSOLUTE AUTO 17.04 K/mm3 (1.96-9.15); NEUTROPHILS PERCENT AUTO 74 % (41-73); Platelet Count 355 K/mm3 (150-400); RDW Coefficient Variation 13.7 % (11.7-14.2); RDW Standard Deviation 46.6 fL (35.1-46.3); Red Blood Cell Count 4.23 M/mm3 (3.80-5.20); White Blood Cell Count 23.08 K/mm3 (4.00-11.30)
[2023-07-28 05:46] LABS: Bun/Creatinine Ratio 12.7 (12.0-20.0); Calcium, Blood 9.1 mg/dL (8.5-10.1); Creatinine, Blood 0.71 mg/dL (0.40-1.00); Potassium, Blood 3.9 mmol/L (3.5-5.5)
[2023-07-28 07:51] VITALS: BP 107/75
--- NOTE | 2023-07-28 08:32 | NUR ---
SUMMARY PT REQUESTED FIORICET FOR HER MIGRAINE SHE TAKES AT HOME.ALSO REQUESTED KLONOPIN 1 MG TAKES AT HOME AND HAD DOSE LAST NIGHT. I CALLED DR SALGADO AND RECEIVED ORDERS. ALSO PT VERB SHE IS HOPING THAT DR SALGADO MIGHT GIVEN HER KAUSHIK 2 PO FOR AT HOME PAIN MED DOSING INSTEAD OF [address]PO[address] WITH [address] SALGADO REGARDING THIS. DR STATED HE WILL REVIEW FURTHER WHEN HE ROUNDS.PT AMBULATORY,VOIDING CLEAR YELLOW,TOLERATING PO,NO CHANGE IN DRIED BLOOD AT UMBILICAL AREA. I PLACED GUAZE WITH TAPE.
[2023-07-28] MEDS ORDERED: AMOCLA875 PO ×2 (11:00)
--- NOTE | 2023-07-28 12:20 | NUR ---
DISCHARGE SUMMARY POD1 LAP APPY, A/OX4, VSS, TOLERATING PO, AMBULATING INDEPENDENTLY, PAIN WELL MANAGED, VOIDING. DISCUSSED DISCHARGE INFORMATION WITH HER AND HER PARENTS INCLUDING HOME CARE, MEDICATIONS, AND FOLLOW UP APPOINTMENTS. PROVIDED HER WITH ABX SCRIPT WRITTEN THIS AM WITH INSTRUCTIONS ON HOW/WHEN TO TAKE IT. IV ACCESS REMOVED PRIOR TO DEPARTURE. LAP SITES DRY AND INTACT WITH SMALL AMT OF DRY SS DRAINAGE NOTED PRIMARILY ON THE UMBILICAL LAP SITE. NO QUESTIONS AT THIS TIME, PT DENIES NEED FOR WC ESCORT AND LEFT AMBULATORY AFTER FINISHING DC PAPERWORK.
== END 2023-07-28 13:15 | disposition home or self-care (01) ==
LOC: ER 09:03 → SURS 09:04
PROVIDERS: Family Medicine; Surgery; ADMIT Family Medicine
PROC: 0DTJ4ZZ Resection of Appendix, Percutaneous Endoscopic Approach (ICD-10-PCS; principal; 2023-07-27 15:00)
DX: K35.891 Other acute appendicitis without perforation, with gangrene (principal); Z88.2 Allergy status to sulfonamides; F31.9 Bipolar disorder, unspecified; Z72.0 Tobacco use; K21.9 Gastro-esophageal reflux disease without esophagitis
CPT/HCPCS: 36415; 71046; 74177; 80048; 80053; 83605; 83690; 85025; 88304; 93005; 93010; 96366; 96374-59; 96375-59; 96376; 99285-25; A9270; C9113; G0378; J1100; J1885; J2250; J2405; J2543; J2704; J2710; J2765; J3010; J7030; Q9967

== ENCOUNTER 2023-12-24 18:48 | Emergency (ER) | payer OTHER ==
[~2023-12-24] VITALS: Ht 160 cm; Wt 81.7 kg
[~2023-12-24 18:48] MED LIST changes: +AMOCLA875 PO; +BUTALB-ACETAMI1 EAC5 PO; +OMEP20ER; +Venlafaxine HCl75 MG PO
[2023-12-24 18:56] VITALS: BP 121/87
[2023-12-24] MEDS ORDERED: BENZ100A PO (19:55)
[2023-12-24] MEDS ORDERED: Benzonatate 100 MG Cap PO ONE (19:55)
== END 2023-12-24 19:58 | disposition home or self-care (01) ==
LOC: ER 18:48
DX: J39.8 Other specified diseases of upper respiratory tract (principal); B97.89 Other viral agents as the cause of diseases classified elsewhere; J40 Bronchitis, not specified as acute or chronic; Z88.2 Allergy status to sulfonamides; Z79.899 Other long term (current) drug therapy; G43.909 Migraine, unspecified, not intractable, without status migrainosus; F17.210 Nicotine dependence, cigarettes, uncomplicated; R05.9 Cough, unspecified; R50.9 Fever, unspecified; D72.829 Elevated white blood cell count, unspecified
CPT/HCPCS: 36415; 71046; 80053; 85025; 85651; 86039; 86140; 86200; 86430; 99283-25; A9270

== ENCOUNTER 2024-03-31 08:24 | Day surgery (SDC) | payer OTHER ==
[~2024-03-31 08:24] MED LIST changes: +BENZ100A PO; +Cosyntropin 0.25 MG / ML 1ML Vial IV SCH; +VENL37.5ER PO; -Venlafaxine HCl75 MG PO
[2024-03-31 08:52] VITALS: BP 132/60
[2024-03-31] MEDS ORDERED: ABILIFY MYCITE10 M2 PO (08:54)
== END 2024-03-31 09:41 | disposition home or self-care (01) ==
LOC: ATC 08:24
DX: R79.89 Other specified abnormal findings of blood chemistry (principal); E23.6 Other disorders of pituitary gland; E22.1 Hyperprolactinemia; F43.10 Post-traumatic stress disorder, unspecified; Z88.2 Allergy status to sulfonamides; Z88.8 Allergy status to other drugs, medicaments and biological substances
CPT/HCPCS: 80400; 82533; 96374; J0834